=== PATIENT | female | born 1960 | race Caucasian/White ===

== ENCOUNTER → 2017-09-08 | Outpatient (CLI) | payer BC ==
[~2017-09-08] MED LIST: CA C1TAB66 PO; LSNP20T PO; LVT.025T PO; OMG1KC PO
== END ==
LOC: RAD 08:56
PROVIDERS: ATTEND Family Medicine
DX: Z12.31 Encounter for screening mammogram for malignant neoplasm of breast (principal); Z53.8 Procedure and treatment not carried out for other reasons

== ENCOUNTER → 2017-09-16 | Outpatient (CLI) | payer BC ==
--- NOTE | 2017-09-16 12:16 | Diagnostic Imaging Report ---
Indication: Routine screening. Comparison is made with prior exam from 04/14/2014 and 06/10/2012. 2-D and 3-D bilateral screening mammography was performed with CAD. Both breasts remain heterogeneously dense, limiting the sensitivity of mammography. No mass or malignant-appearing microcalcifications are seen. There are benign calcifications bilaterally. The axillae are unremarkable. Impression: BI-RADS category 2 No mammographic features suspicious for malignancy are identified. ACR BI-RADS Category 2: Benign findings. Result letter will be mailed to the patient. Note: At least 10% of breast cancer is not imaged by mammography. Dictated by: Dictated on workstation # [id number]
== END ==
LOC: RAD 07:20
PROVIDERS: ATTEND Family Medicine
DX: Z12.31 Encounter for screening mammogram for malignant neoplasm of breast (principal)
CPT/HCPCS: 77067

== ENCOUNTER → 2018-04-20 | Outpatient (CLI) | payer BC ==
[2018-04-20 14:25] LABS: BASOPHILS % (AUTO) 1 % (0-10); EOSINOPHILS # (AUTO) 0.1 10^3/uL (0.0-0.3); EOSINOPHILS % (AUTO) 2 % (0-10); HEMATOCRIT 42 % (35-52); LYMPHOCYTES # (AUTO) 1.8 X 10^3 (1.0-4.0); LYMPHOCYTES % (AUTO) 28 % (12-44); MEAN CORPUSCULAR HEMOGLOBIN 32 PG (25-34); MEAN CORPUSCULAR HGB CONC 36 G/DL (32-36); MEAN CORPUSCULAR VOLUME 91 FL (80-99); MEAN PLATELET VOLUME 9.5 FL (7.4-10.4); MONOCYTES # (AUTO) 0.5 X 10^3 (0.0-1.0); MONOCYTES % (AUTO) 8 % (0-12); NEUTROPHILS # (AUTO) 3.9 X 10^3 (1.8-7.8); NEUTROPHILS % (AUTO) 62 % (42-75); PLATELET COUNT 344 10^3/uL (130-400); RED CELL DISTRIBUTION WIDTH 11.4 % (10.0-14.5); WHITE BLOOD COUNT 6.4 10^3/uL (4.3-11.0)
[2018-04-20 14:48] LABS: ALANINE AMINOTRANSFERASE 13 U/L (0-55); ALBUMIN 4.9 GM/DL (3.2-4.5); ALKALINE PHOSPHATASE 63 U/L (40-136); BILIRUBIN,TOTAL 0.4 MG/DL (0.1-1.0); BUN/CREATININE RATIO 16; CALCIUM 10.3 MG/DL (8.5-10.1); CARBON DIOXIDE 26 MMOL/L (21-32); CHLORIDE 96 MMOL/L (98-107); GFR ESTIMATED > 60; GLUCOSE 142 MG/DL (70-105); POTASSIUM 3.3 MMOL/L (3.6-5.0); SODIUM 134 MMOL/L (135-145); TOTAL PROTEIN 8.2 GM/DL (6.4-8.2)
[2018-04-20 15:10] LABS: FREE T4 (FREE THYROXINE) 1.48 NG/DL (0.70-1.48)
== END ==
LOC: CARD 13:58
PROVIDERS: ATTEND Nurse Practitioner Family
DX: R06.00 Dyspnea, unspecified (principal); R00.2 Palpitations; R07.9 Chest pain, unspecified
CPT/HCPCS: 36415; 80053; 84439; 84443; 84484; 85025; 85379; 93005

== ENCOUNTER → 2018-07-27 | Outpatient (CLI) | payer BC ==
--- NOTE | 2018-07-27 08:48 | Diagnostic Imaging Report ---
PROCEDURE: US Gallbladder. TECHNIQUE: Multiple real-time grayscale images were obtained over the right upper quadrant in various projections. INDICATION: Right upper quadrant pain. There are no prior studies available for comparison. FINDINGS: There is no evidence for cholelithiasis or acute cholecystitis. The common bile duct is 7.3 mm and perhaps slightly dilated (normal duct size 5-6 mm). There is no sign of choledocholithiasis. The liver does not appear to be enlarged and there is no focal mass involving the liver. The biliary tree is not abnormally distended. The right kidney is unremarkable. The pancreas and the aorta were not well imaged. IMPRESSION: 1. There is no evidence for cholelithiasis or acute cholecystitis but the common bile duct is slightly dilated. There is no sign of choledocholithiasis, however. If further evaluation of the common bile duct is desired, then MRCP would be recommended. 2. There is no acute abnormality of the right upper quadrant otherwise. Dictated by: Dictated on workstation # [id number]
== END ==
LOC: RAD 07:40
PROVIDERS: ATTEND Surgery
DX: K83.8 Other specified diseases of biliary tract (principal); R10.11 Right upper quadrant pain; R11.0 Nausea; R19.7 Diarrhea, unspecified
CPT/HCPCS: 76705

== ENCOUNTER 2018-08-13 05:39 | Outpatient (CLI) | payer BC ==
[~2018-08-13] VITALS: Ht 147.3 cm; Wt 52.2 kg
[2018-08-13] MEDS ORDERED: PANT40TA3 PO (13:13)
[2018-08-13] MEDS ORDERED: METO-370 PO (13:13)
[2018-08-13] MEDS ORDERED: LEVO88TA54 PO (13:13)
[2018-08-13] MEDS ORDERED: MULT-178 PO (13:13)
[2018-08-13] MEDS ORDERED: POTA-51 PO (13:13)
== END 2018-08-13 13:18 | disposition home or self-care (01) ==
LOC: PREOP 05:39
PROVIDERS: ATTEND Surgery
DX: Z01.818 Encounter for other preprocedural examination (principal)

== ENCOUNTER 2018-08-19 09:36 | Day surgery (SDC) | payer BC ==
[~2018-08-19] VITALS: Ht 147.3 cm; Wt 52.2 kg
[~2018-08-19 09:36] MED LIST changes: +LEVO88TA54 PO; +METO-370 PO; +MULT-178 PO; +PANT40TA3 PO; +POTA-51 PO
--- OUTSIDE RECORDS SUMMARY | 2018-08-19 09:47 | XMS REPORT | Encounter Summary ---
Author Author [facility] Organization [facility] Address Unknown Phone Unavailable Care Team Providers Care Claims Administrator Name Role Phone Yesenia Vazquez MD PCP Reason for Referral * Test (Routine) Referred By Contact Referred To Contact Status Reason Specialty Diagnoses / [place] [address] [place] [address] [employer]/[place] [address] [place] [address] No Auth Needed Cardiology Diagnoses Tachycardia Cardiac murmur Essential hypertension Dyspnea on exertion P rocedures TREADMILL EXERCISE ECHOCARDIOGRAM W/2-D + DOPPLER ECHO MA ECHO TTHRC R-T 2D W/WO M-MODE COMPLETE REST&ST * Test (Routine) Referred By Contact Referred To Contact Status Reason Specialty Diagnoses / [place] [address] [place] [address] [facility] [address] [place] [address] No Auth Needed Cardiology Diagnoses Tachycardia Cardiac murmur Essential hypertension Dyspnea on exertion P rocedures TREADMILL EXERCISE ECHOCARDIOGRAM W/2-D + DOPPLER ECHO MA ECHO TTHRC R-T 2D W/WO M-MODE COMPLETE REST&ST Reason for Visit * Test (Routine) Referred By Contact Referred To Contact Status Reason Specialty Diagnoses / [place] [address] [employer] [address] [place] [address] [employer] [facility]/[place] [address] [place] [address] No Auth Needed Cardiology Diagnoses Tachycardia Cardiac murmur Essential hypertension Dyspnea on exertion P rocedures TREADMILL EXERCISE ECHOCARDIOGRAM W/2-D + DOPPLER ECHO MA ECHO TTHRC R-T 2D W/WO M-MODE COMPLETE REST&ST Encounter Details Care Team Description [place] [address] [employer] [address] [place] [address] [phone] 06/11/2018 [facility] [address] [place] [address] Social History Date Tobacco Use Types Packs/Day Years Used Never Smoker Smokeless Tobacco: Never Used Drinks/Week oz/Week Comments Alcohol Use 12 Cans of beer 7.2 Yes Sex Assigned at Date Recorded Not on file Industry Job Start Date Occupation Not on file Not on file Not on file Travel End Travel History Travel Start No recent travel history available. documented as of this encounter Last Filed Vital Signs Reading Time Taken Comments Vital Sign 150/90 06/11/2018 2:29 PM CDT Blood Pressure - - Pulse - - Temperature - - Respiratory Rate - - Oxygen Saturation - - Inhaled Oxygen Concentration 55.8 kg (123 lb) 06/11/2018 2:29 PM CDT Weight 147.3 cm (4' 10") 06/11/2018 2:29 PM CDT Height 25.71 06/11/2018 2:29 PM CDT Body Mass Index documented in this encounter Medications at Time of Discharge Start Date End Date Medication Sig Dispensed Refills levothyroxine sodium Take 88 mcg 0 (LEVOTHYROXINE PO) by mouth daily. metoprolol XL (TOPROL XL) Take 50 mg by 0 50 mg extended release mouth daily. tablet potassium chloride SR Take 10 mEq 0 (K-DUR) 10 mEq tablet by mouth twice daily. Take with a meal and a full glass of water. documented as of this encounter Plan of Treatment Not on filedocumented as of this encounter Procedures Comments Procedure Name Priority Date/Time Associated Diagnosis TREADMILL EXERCISE Routine 06/11/2018 Tachycardia ECHOCARDIOGRAM W/2-D + 2:29 PM CDT Cardiac murmur DOPPLER ECHO Essential hypertension Dyspnea on exertion documented in this encounter Results * TREADMILL EXERCISE ECHOCARDIOGRAM W/2-D + DOPPLER ECHO (06/11/2018 2:29 PM CDT) Pathologist [facility] BSA 1.51 m2 OTHER OUTSIDE LAB Baseline HR 97 bpm OTHER OUTSIDE LAB Baseline BP - 150 mmHg OTHER OUTSIDE Sys LAB Percent HR 90 % OTHER OUTSIDE LAB Referring Yesenia Vazquez MD OTHER OUTSIDE Provider LAB CV ECHO PV Shaheen Dunn OTHER OUTSIDE DROP BOARD WORKER LAB Target HR 146 OTHER OUTSIDE LAB MV vena 0.58 cm OTHER OUTSIDE contracta LAB TV rest 28 mmHg OTHER OUTSIDE pulmonary LAB artery pressure Right Heart 0.204 m/s OTHER OUTSIDE Systolic TDI S' LAB Cardiology Siemens [id number] OTHER OUTSIDE Ultrasound LAB Machine Baseline BP - 90 mmHg OTHER OUTSIDE Garces LAB IVS 1.14 0.6 - 0.9 cm OTHER OUTSIDE LAB LVIDD 3.51 3.8 - 5.2 cm OTHER OUTSIDE LAB LVIDS 2.02 2.2 - 3.5 cm OTHER OUTSIDE LAB PW 0.77 0.6 - 0.9 cm OTHER OUTSIDE LAB TDI e' 0.10 m/s OTHER OUTSIDE LAB Right 2.64 1.9 - 3.5 cm OTHER OUTSIDE Ventricular Mid LAB Diameter LA size 2.97 2.7 - 3.8 cm OTHER OUTSIDE LAB LA volume 24.05 22 - 52 mL OTHER OUTSIDE LAB Right Atrial 11.02 <18 cm2 OTHER OUTSIDE Area LAB Right Atrial 4.13 2.2 - 2.8 cm OTHER OUTSIDE Major Dimension LAB and a peak 6.71 mmHg OTHER OUTSIDE gradient of LAB AV peak 1.30 m/s OTHER OUTSIDE velocity LAB MV Peak A Irving 0.94 m/s OTHER OUTSIDE LAB MV Peak E Irving 0.87 m/s OTHER OUTSIDE PW LAB Right 3.07 2.5 - 4.1 cm OTHER OUTSIDE Ventricular LAB Basal Diameter Right Heart 3.14 >1.7 cm OTHER OUTSIDE Systolic Mmode LAB TAPSE Sinus 2.54 2.4 - 3.6 cm OTHER OUTSIDE LAB Exercise 6 min OTHER OUTSIDE duration (min) LAB Estimated 7 METS OTHER OUTSIDE workload LAB Peak HR 160 bpm OTHER OUTSIDE LAB Peak BP - Sys 170 mmHg OTHER OUTSIDE LAB Percent of 99 % OTHER OUTSIDE predicted max LAB HR Post 1 minute 136 bpm OTHER OUTSIDE recovery HR LAB Exercise 30 sec OTHER OUTSIDE duration (sec) LAB FS 42.45 28 - 44 % OTHER OUTSIDE LAB EF 72.17 % OTHER OUTSIDE LAB LV mass 97.09 66 - 150 g OTHER OUTSIDE LAB RWT 0.44 <=0.42 OTHER OUTSIDE LAB E/A ratio 0.93 OTHER OUTSIDE LAB E/E' ratio 8.70 OTHER OUTSIDE LAB Left Atrium 15.93 16 - 34 OTHER OUTSIDE Index LAB Left Ventricle 64.30 44 - 88 g/m2 OTHER OUTSIDE Mass Index LAB Peak BP - Garces 78 OTHER OUTSIDE LAB ECHO EF 65 % OTHER OUTSIDE LAB Specimen Narrative Performed At OTHER OUTSIDE LAB Resting 2D/Doppler echocardiogram: Normal left ventricle size and systolic function, EF ~ 65%. Normal LV diastolic function Normal right ventricle size and qualitative function Normal atria sizes bilaterally Mild mitral regurgitation. Estimated peak systolic PA pressure=28 mmHg No pericardial effusion Treadmill stress ECG: Patient exercised for 6 min and 30 seconds on a Abdullahi protocol Patient achieved 99% max pred HR and 7 METS Exercise capacity is fair. Patient experienced no symptoms suggestive of angina Baseline ECG showed normal sinus rhythm with normal ST and T wave changes. Patient had upsloping less than [address] depression in leads V4-V6 and II 3 and aVF. No significant arrhythmia noted during rest, exercise or recovery periods Overall non-ischemic stress ECG Alba Treadmill score is 7, which is low risk in terms of annual cardiovascular mortality Treadmill stress 2D echocardiogram: Overall ejection fraction more than 65% with stress There were no regional wall motion abnormalities during stress or recovery period Overall non-ischemic stress echocardiogram Performing Organization Address City/State/Zipcode Phone Number OTHER OUTSIDE LAB documented in this encounter Visit Diagnoses Diagnosis Tachycardia Tachycardia, unspecified Cardiac murmur Undiagnosed cardiac murmurs Essential hypertension Unspecified essential hypertension Dyspnea on exertion Other dyspnea and respiratory abnormality documented in this encounter
--- OUTSIDE RECORDS SUMMARY | 2018-08-19 09:47 | XMS REPORT | Encounter Summary ---
Author Author [facility] Organization [facility] Address Unknown Phone Unavailable Care Team Providers Care Brim Curler Name Role Phone Yesenia Vazquez MD PCP Reason for Visit * Reason Comments Records Request Requested Thyroid level from PCP Lab Results Encounter Details Care Team Description Date Type Department Danika Fraser RN Records Request (Requested Thyroid level from PCP); Lab Results 06/12/2018 Documentation [facility] [address] [place] [address] Social History Date Tobacco Use Types Packs/Day [...] history available. documented as of this encounter Progress Notes * Danika Fraser RN - 06/12/2018 5:41 PM CDT Normal TSH/Free T4 results received and entered to records. LN * Danika Fraser RN - 06/12/2018 5:41 PM CDT URGENT REQUEST FOR MEDICAL RECORDS FOR CONTINUITY OF CARE PLEASE FAX: RECENT THYROID TEST RESULTS PLEASE FAX TO [phone] ATTENTION: DANIKA FRASER RN THANK YOU documented in this encounter Plan of Treatment Not on filedocumented as of this encounter Procedures Comments Procedure Name Priority Date/Time Associated Diagnosis THYROID STIMULATING Routine 04/20/2018 HORMONE-TSH FREE T4 (FREE THYROXINE) Routine 04/20/2018 ONLY documented in this encounter Results * THYROID STIMULATING HORMONE-TSH (04/20/2018) TSH 1.38 OTHER OUTSIDE LAB Specimen Blood - Blood Narrative Performed At Performing Organization Address City/State/Zipcode Phone Number OTHER OUTSIDE LAB * FREE T4 (FREE THYROXINE) ONLY (04/20/2018) T4-Free 1.48 OTHER OUTSIDE LAB Specimen Blood - Blood Narrative Performed At Performing Organization Address City/State/Zipcode Phone Number OTHER OUTSIDE LAB documented in this encounter Visit Diagnoses Not on filedocumented in this encounter
--- OUTSIDE RECORDS SUMMARY | 2018-08-19 09:47 | XMS REPORT | Encounter Summary ---
Author Author [facility] Organization [facility] Address Unknown Phone Unavailable Care Team Providers Care Supervisor Powdered Sugar Name Role Phone Yesenia Vazquez MD PCP Reason for Visit * Reason Comments Test EXED Encounter Details Care Team Description Date Type Department Rowan Barron RN Test (EXED) 06/10/2018 Referral [facility] Pre-Procedure Health System Assessment [id number] [place] [address] Social History Date Tobacco Use Types Packs/Day [...] as of this encounter Progress Notes * Rowan Barron, RN - 06/10/2018 11:11 AM CDT [facility] Cardiology/[facility] Pre-Test Assessment for EXED Patient Name: Laura Powell MR#: [id number] : 1960 Age: 57 y.o. Gender: Female Requesting Physician (/): DEREK Referring Physician (/): Study# Date of Study: _4___/__25__/__19___ Date of Last Study: ____/____/ (ADAC / DSPECT) Date of Last Office/Hosp Visit: __4__/_11___/_19____ If >24 hours complete the Assessment below: > 24 Hour Assessment: Risk Factors (Y or N): Diabetes Mellitus N Hypertension Y Cholesterol N Smoker N Packs per Day Years Quit Since last MAC physician examination has the patient experienced: Hospitalization: [x]No []Yes (explain) Emergency room visit: [x]No []Yes (explain) Change in CV symptoms: Chest Pain []No [x]Yes Scale []1 []2 [x]3 or [x]4 []5 []6 []7 []8 []9 []10 Burning, but I am still able to do my normal daily activities Shortness of Breath []No [x]Yes Palpitations [x]No []Yes Pre-syncope [x]No []Yes Syncope [x]No []Yes Transient ischemic attack / Cardiovascular Accident [x]No []Yes Hypertension [x]No []Yes Other Indications/History: VIDAL Change in medication: None Allergies: Iodine Additional procedural comments: Called pt, went over EXED instructions with her via phone call. >1 year since last OV or New Patient (High Risk Screen): Nutritional Risk: [x]None Identified []Unintentional Weight Loss>10 lbs []Unintentional Weight Gain>10 lbs []Non-Healing Wound Fall Risk: [x]None Identified []Hx of falls within last 6 mo. []Impaired Balance/Mobility []Use of Assistive Device Safety Screen: [x]None Identified []Patient does not feel safe at home []Patient feels like harming self or others greenskeeper head Signature: _H Anderson RN__ Date: /__19__ Time: __ _ : _14__ Date of Dictation: ____/____/____ Reporting Physician Signature [facility] Pre-Test Assessment - Version: 2014-03-21 documented in this encounter Plan of Treatment Not on filedocumented as of this encounter Visit Diagnoses Not on filedocumented in this encounter
--- OUTSIDE RECORDS SUMMARY | 2018-08-19 09:47 | XMS REPORT | Clinical Summary ---
Author Author [facility] Organization [facility] Address Unknown Phone Unavailable Care Team Providers Care Neonatal Intensive Care Nurse Name Role Phone Yesenia Vazquez MD PCP Source Comments Some departments are not documenting in the electronic medical record. If you d o not see the information that you expected, contact Release of Information in [facility] [employer] Information Management department at [phone] for further assistan ce in locating additional records.[facility] Allergies Comments Active Allergy Reactions Severity Noted Date Iodine RASH Medium 05/28/2018 Medications End Date Status Medication Sig Dispensed Refills Start Date Active levothyroxine sodium Take 88 mcg 0 (LEVOTHYROXINE PO) by mouth daily. Active potassium chloride SR Take 10 mEq 0 (K-DUR) 10 mEq tablet by mouth twice daily. Take with a meal and a full glass of water. Active metoprolol XL (TOPROL XL) Take 50 mg by 0 50 mg extended release mouth daily. tablet Active Problems Problem Noted Date Dyspnea 06/12/2018 Overview: 06/11/18-Exercise Echo: EF ~ 65%. Mild mitral regurgitation. Estimated peak systolic PA pressure=28 mmHg. Patient exercised for 6 min and 30 seconds. Patient achieved 99% max pred HR and 7 METS. Exercise capacity is fair. Patient experienced no symptoms suggestive of angina. Patient had upsloping less than [address] depression in leads V4-V6 and II 3 and aVF. No significant arrhythmia noted during rest, exercise or recovery periods. Overall non-ischemic stress ECG. No regional wall motion abnormalities during stress or recovery period. Overall non-ischemic stress echocardiogram H/O tubal ligation 05/26/2018 Overview: 2007 Hypothyroidism 05/26/2018 Essential hypertension 05/26/2018 Encounters Care Team Description Date Type Specialty Danika Fraser, RN Records Request (Requested Thyroid level from PCP); Lab Results 06/12/2018 Documentation Cardiology Danika Fraser RN Results (Treadmill Echo); Blood Pressure Readings 06/12/2018 Telephone Cardiology Eros Weber MD 06/11/2018 Hospital Cardiology Encounter Rowan Barron RN Test (EXED) 06/10/2018 Referral Cardiology Pre-Procedure Assessment Eros Weber MD 05/28/2018 Hospital Cardiology Encounter Eros Weber MD New Patient (Murmur; Tachycardia) 05/28/2018 Office Visit Cardiology Danika Fraser RN Records Request (requested records from PCP) 05/25/2018 Documentation Cardiology Danika Fraser RN New Patient (Evaluation of Murmur and Tachycardia. Sister of Joellen Broussard. Pt's also sees Dr Weber. for patient to call to discuss profile.) 05/22/2018 Patient Profile Cardiology from Last 3 Months Family History Medical History Relation Name Comments Sudden Cardiac Father Cancer Maternal Grandfather High Cholesterol Mother Cancer Paternal Grandfather Emphysema Paternal Grandfather Thyroid Disease Sister Relation Name Status Comments Father (Age 47) Maternal Grandfather Maternal Grandmother (Age 92) Mother Alive Paternal Grandfather Paternal Grandmother (Age 99) Sister Alive Social History Date Tobacco Use Types Packs/Day Years Used Never Smoker Smokeless Tobacco: Never Used Drinks/Week oz/Week Comments Alcohol Use 12 Cans of beer 7.2 Yes Sex Assigned at Date Recorded Not on file Industry Job Start Date Occupation Not on file Not on file Not on file Travel End Travel History Travel Start No recent travel history available. Last Filed Vital Signs Reading Time Taken Comments Vital Sign 150/90 06/11/2018 2:29 PM CDT Blood Pressure 75 05/28/2018 2:01 PM CDT Pulse - - Temperature - - Respiratory Rate - - Oxygen Saturation - - Inhaled Oxygen Concentration 55.8 kg (123 lb) 06/11/2018 2:29 PM CDT Weight 147.3 cm (4' 10") 06/11/2018 2:29 PM CDT Height 25.71 06/11/2018 2:29 PM CDT Body Mass Index Plan of Treatment Health Maintenance Due Date Last Done Comments HEPATITIS C SCREENING 1960 PHYSICAL (COMPREHENSIVE) 11/18/1966 EXAM HIV SCREENING 11/18/1974 DTAP/TDAP VACCINES (1 - 11/18/1977 Tdap) CERVICAL CANCER SCREENING 11/18/1989 BREAST CANCER SCREENING 1999 COLORECTAL CANCER 11/18/2009 SCREENING SHINGLES RECOMBINANT 11/18/2009 VACCINE (1 of 2) INFLUENZA VACCINE 11/17/2018 Procedures Comments Procedure Name Priority Date/Time Associated Diagnosis TREADMILL EXERCISE Routine 06/11/2018 Tachycardia ECHOCARDIOGRAM W/2-D + 2:29 PM CDT Cardiac murmur DOPPLER ECHO Essential hypertension Dyspnea on exertion BASIC METABOLIC PANEL Routine 05/28/2018 Tachycardia 2:58 PM CDT Cardiac murmur Essential hypertension Dyspnea on exertion ECG-SCAN 05/28/2018 12:00 AM CDT from Last 3 Months Results * TREADMILL EXERCISE ECHOCARDIOGRAM W/2-D + DOPPLER ECHO (06/11/2018 2:29 PM CDT) BSA 1.51 m2 OTHER OUTSIDE LAB Baseline HR 97 bpm OTHER OUTSIDE LAB Baseline BP - 150 mmHg OTHER OUTSIDE Sys LAB Percent HR 90 % OTHER OUTSIDE LAB Referring Yesenia Vazquez MD OTHER OUTSIDE Provider LAB CV ECHO PV Shaheen Dunn OTHER OUTSIDE ELECTRONIC ASSEMBLY LAB Target HR 146 OTHER OUTSIDE LAB MV vena 0.58 cm OTHER OUTSIDE contracta LAB TV rest 28 mmHg OTHER OUTSIDE pulmonary LAB artery pressure Right Heart 0.204 m/s OTHER OUTSIDE Systolic TDI S' LAB Cardiology Siemens [id number] OTHER OUTSIDE Ultrasound LAB Machine Baseline BP [...] City/State/Zipcode Phone Number OTHER OUTSIDE LAB * BASIC METABOLIC PANEL (05/28/2018 2:58 PM CDT) [facility] Sodium 132 (L) 137 - 147 MMOL/L [facility] Potassium 4.2 3.5 - 5.1 MMOL/L [facility] Chloride 99 98 - 110 MMOL/L [facility] CO2 25 21 - 30 MMOL/L [facility] Anion Gap 8 3 - 12 [facility] Glucose 110 (H) 70 - 100 MG/DL [facility] Blood Urea 11 7 - 25 MG/DL [facility] Nitrogen Creatinine 0.75 0.4 - 1.00 MG/DL [facility] Calcium 9.8 8.5 - 10.6 MG/DL [facility] eGFR Non >60 >60 mL/min [facility] Comment: [place] The eGFR is not validated for use in drug dosing adjustments.Continue to use estimated creatinine clearance per dosing reference text.Please contact the Clinical Pharmacist for questions. eGFR >60 >60 mL/min [facility] [place] Comment: The eGFR is not validated for use in drug dosing adjustments.Continue to use estimated creatinine clearance per dosing reference text.Please contact the Clinical Pharmacist for questions. Specimen Blood Performing Organization Address City/State/Zipcode Phone Number MAIN LAB [address] [place] [address] * ECG-SCAN (05/28/2018 12:00 AM CDT) Narrative Performed At Ordered by an unspecified provider. from Last 3 Months Insurance Type Payer Benefit Subscriber ID Effective Phone Address Plan / Dates Group PPO [facility] xxxxxxxxxxxx [id number] [facility] resent BLUE Advance Directives Patient Director Of Hotel Explanation Type Date Recorded Advance Directive/DPOA
--- OUTSIDE RECORDS SUMMARY | 2018-08-19 09:47 | XMS REPORT | Encounter Summary ---
Author Author [facility] Organization [facility] Address Unknown Phone Unavailable Care Team Providers Care Child Psychologist Name Role Phone Yesenia Vazquez MD PCP Encounter Details Care Team Description [place] [address] [address] [place] [address] [phone] 05/28/2018 Hospital [facility] [id number] [place] [address] Social History Date Tobacco Use Types Packs/Day [...] history available. documented as of this encounter Medications at Time of Discharge [...] Comments Procedure Name Priority Date/Time Associated Diagnosis BASIC METABOLIC PANEL Routine 05/28/2018 Tachycardia 2:58 PM CDT Cardiac murmur Essential hypertension Dyspnea on exertion ECG-SCAN 05/28/2018 12:00 AM CDT documented in this encounter Results * BASIC METABOLIC PANEL (05/28/2018 2:58 PM CDT) Sodium 132 (L) 137 - 147 MMOL/L [...] >60 >60 mL/min [facility] Comment: [place] The eGFR is not validated for use in drug dosing adjustments.Continue to use estimated creatinine clearance per dosing reference text.Please contact the Clinical Pharmacist for questions. eGFR >60 >60 mL/min [facility] [place] Comment: The eGFR is not validated for use in drug dosing adjustments.Continue to use estimated creatinine clearance per dosing reference text.Please contact the Clinical Pharmacist for questions. Specimen Blood Performing Organization Address City/State/Zipcode Phone Number MAIN LAB [address] [place] [address] * ECG-SCAN (05/28/2018 12:00 AM CDT) Narrative Performed At Ordered by an unspecified provider. documented in this encounter Visit Diagnoses Diagnosis Tachycardia Tachycardia, unspecified Cardiac murmur Undiagnosed cardiac murmurs Essential hypertension Unspecified essential hypertension Dyspnea on exertion Other dyspnea and respiratory abnormality documented in this encounter
--- OUTSIDE RECORDS SUMMARY | 2018-08-19 09:47 | XMS REPORT | Encounter Summary ---
Author Author [facility] Organization [facility] Address Unknown Phone Unavailable Care Team Providers Care Bargain Table Clerk Name Role Phone Yesenia Vazquez MD PCP Reason for Visit * Reason Comments Results Treadmill Echo Blood Pressure Readings Encounter Details Care Team Description Date Type Department Danika Fraser RN Results (Treadmill Echo); Blood Pressure Readings 06/12/2018 Telephone [facility] [address] [place] [address] Social History Date Tobacco Use Types Packs/Day [...] history available. documented as of this encounter Miscellaneous Notes * Telephone Encounter - Danika Fraser RN - 07/03/2018 2:35 PM CDT Ms. Powell called back and LM that she has been feeling good. BP/HR good. LM with readings: 136/81 122/74 121/75 130/71 HR 60-65. Attempted to reach her back to discuss. LM asking her to call if SBP consistentl y >130. My direct number left. LN * Telephone Encounter - Danika Fraser RN - 07/03/2018 11:49 AM CDT LM for Mrs Powell that I was calling to check on BP/HR readings. My direct numb er left. LN * Telephone Encounter - Danika Fraser RN - 06/26/2018 12:32 PM CDT I called to discuss BP readings with Ms. Powell. Last couple days BP: 126/75-78, HR 58-62; however, previously she reports SBP was 140's. She will continue to monitor and call with BP readings later next week along wit h the name of a new medication she started for a "stomach ulcer." Thinks it is Protonix but "not sure." She stated she is feeling "much better." LN * Telephone Encounter - Danika Fraser RN - 06/12/2018 5:37 PM CDT Able to discuss information with Ms. Powell. She states she has not been checki ng her BP. Stated she checked her BP once and it was 130/80. HR has been "better". At rest, 62-82. "little higher" when up doing activity. She is battling allergies right now. Reminded her to not take any allergy medica tion with a decongestant. Also, she reports she did have Thyroid testing done with her PCP. Will request r ecords. Asked her to start checking her BP/HR daily and that I would get back with her i n 10-14 days to discuss results. Asked her to get with her PCP for further f/u. LN * Telephone Encounter - Danika Fraser RN - 06/12/2018 8:19 AM CDT Female, 57 y.o., 1960 Message Received: Today Message Contents Eros Weber MD Nelson, Laurie, RN Cristine Please let Mrs. Powell know her treadmill echocardiogram is normal. Baseline echocardiogram entirely normal. Good exercise capacity, no chest pain, heart rate looks fine with exercise. Her blood pressure was notably elevated at arrival. Please inquire about home heart rate and blood pressure over the past 2 weeks, if blood pressure consisten tly greater than 130, I would like to increase her metoprolol to 75 mg daily At this point I do not feel that we have a cardiac examination for her persisten t dyspnea. Please assure that she has had a TSH drawn, I do not recall this was in her outp atient lab draw with her PCP, if not done please order. Given this entirely normal treadmill stress test, I would suggest that she retur n to her PCP for pulmonary testing given her sig sx Thanks Manny Result Notes for TREADMILL EXERCISE ECHOCARDIOGRAM W/2-D + DOPPLER ECHO documented in this encounter Plan of Treatment Not on filedocumented as of this encounter Visit Diagnoses Diagnosis Other form of dyspnea documented in this encounter
--- OUTSIDE RECORDS SUMMARY | 2018-08-19 09:48 | XMS REPORT | Continuity of Care Document ---
Author Organization Unknown Address Unknown Allergies There is no data. Medications There is no data. Problems There is no data. Procedures There is no data. Results There is no data. Encounters ACCT No. Visit Date/Time Discharge Status Pt. Type Provider Facility Loc./Unit Complaint 05/201707/22/2018 00:15:06 07/22/2018 23:59:59 CLS Outpatient Yesenia Vazquez
--- OUTSIDE RECORDS SUMMARY | 2018-08-19 09:48 | XMS REPORT | Encounter Summary ---
Author Author [facility] Organization [facility] Address Unknown Phone Unavailable Care Team Providers Care Law Firm Administrator Name Role Phone Yesenia Vazquez MD PCP Reason for Visit * Reason Comments New Patient Evaluation of Murmur and Tachycardia. Sister of Joellen Broussard. Pt's also sees Dr Weber. LM for patient to call to discuss profile. Encounter Details Care Team Description Date Type Department Danika Fraser RN New Patient (Evaluation of Murmur and Tachycardia. Sister of Joellen Broussard. Pt's also sees Dr Weber. LM for patient to call to discuss profile.) 05/22/2018 Patient Profile [facility] [address] [place] [address] Social History Date Tobacco Use Types Packs/Day [...] as of this encounter Progress Notes * Shine Bowling RN - 05/22/2018 9:19 AM CDT Patient left voicemail yesterday at 7:17 PM returning Danika's call. Left voicemail for patient to call back to discuss medical history. * Danika Fraser, MEREDITH - 05/22/2018 9:19 AM CDT Evaluation of Murmur and Tachycardia. Sister of Joellen Broussard. Pt's also s ees Dr Weber. LM for patient to call to discuss profile. LN documented in this encounter Plan of Treatment Not on filedocumented as of this encounter Visit Diagnoses Diagnosis H/O tubal ligation Tubal ligation status Hypothyroidism, unspecified type Essential hypertension Unspecified essential hypertension documented in this encounter
--- OUTSIDE RECORDS SUMMARY | 2018-08-19 09:48 | XMS REPORT | Encounter Summary ---
Author Author [facility] Organization [facility] Address Unknown Phone Unavailable Care Team Providers Care Block Trader Name Role Phone Yesenia Vazquez MD PCP Reason for Referral * Consult, Test & Treat (Routine) Referred By Contact Referred To Contact Status Reason Specialty Diagnoses / [place] [address] [place] [address] New Request Procedures REQUEST FOR CARDIOLOGY APPOINTMENT * Test (Routine) Referred By Contact Referred To Contact Status Reason Specialty Diagnoses / [place] [address] [place] [address] [facility] [address] [place] [address] No Auth Needed Cardiology Diagnoses Tachycardia Cardiac murmur Essential hypertension Dyspnea on exertion P rocedures TREADMILL EXERCISE ECHOCARDIOGRAM W/2-D + DOPPLER ECHO TX ECHO TTHRC R-T 2D W/WO M-MODE COMPLETE REST&ST Reason for Visit * Reason Comments New Patient Murmur; Tachycardia * Consult, Test & Treat (Routine) Referred By Contact Referred To Contact Status Reason Specialty Diagnoses / Procedures Yesenia Vazquez MD [address] [id number] [place] [address] [place] [address] New Request Specialty Services Cardiology Diagnoses Required Tachycardia Cardiac murmur Encounter Details Care Team Description Date [place] [address] [place] [address] [phone] New Patient (Murmur; Tachycardia) 05/28/2018 Office Visit [facility] [address] [facility] [address] [place] [address] Social History Date Tobacco Use Types Packs/Day [...] Signs Reading Time Taken Comments Vital Sign 126/68 05/28/2018 2:01 PM CDT Blood Pressure 75 05/28/2018 2:01 PM CDT Pulse - - Temperature - - Respiratory Rate - - Oxygen Saturation - - Inhaled Oxygen Concentration 56.2 kg (123 lb 12.8 oz) 05/28/2018 2:01 PM CDT Weight 147.3 cm (4' 10") 05/28/2018 2:01 PM CDT Height 25.87 05/28/2018 2:01 PM CDT Body Mass Index documented in this encounter Patient Instructions * Patient Instructions* Eros Weber MD - 05/28/2018 2:00 PM CDT I am concerned about your recent symptoms of shortness of breath with minimal ac tivity. Your recent lab testing on my review looks okay outside of low sodium level. I am repeating your sodium lab work today. I am scheduling you for a treadmill echo julioadilene Salgadoam stress test to further as sess her symptoms. Your exam and EKG today are normal I'll plan for a follow up clinic visit in 4 months, or sooner if you're having q uestions or problems. Danika Fraser is my nurse. Should you have any questions or concerns prior to o ur next office visit please contact Danika [phone]. documented in this encounter Progress Notes * Eros Weber MD - 05/28/2018 2:00 PM CDT Date of Service: 05/28/2018 Laura Powell is a 57 y.o. female. HPI I had the opportunity to see Laura Powell for the first time in my office to day. Mrs. Powell is a delightful 57-year-old individual, the of one of my long-time patients, Burt Powell. Her sister, Joellen Goodson, is a nurse at our Heart Failure Team. Joellen Anthony helped coordinate this visit today. Dr. Juan barnes, thank you very much for sending this patient in consultation for evaluatio n of progressive dyspnea with exertion. Mrs. Powell indicates she was doing well up until late February. She had a GI i llness at that time with associated nausea, vomiting, and diarrhea. She had sig nificant symptoms over the course of 4 days. She missed work over the course of a week. She indicates she has not fully recovered, now 2 months out from this illness. Minimal activity is causing her significant dyspnea. She indicates 3 to 4 months ago, she had no problem walking 3 to 4 miles. She had no exercise l imitations whatsoever. For the past 8 weeks, a flight of stairs caused her to b e completely 'breathless'. She has tried to ride a bicycle outside this weekend . She was unable to do so, due to significant fatigue. The patient had an ECG with Dr. Vazquez on April 20. I have reviewed the mau ng. She had sinus tachycardia with a heart rate 107 at rest. She was subsequen tly transitioned from hydrochlorothiazide to metoprolol. She was started on 50 mg daily. She has been on this dose for about 2 weeks and tolerating it well. Unfortunately, she has had no improvement in her symptoms, despite the addition of metoprolol. Mrs. Powell indicates she has had no concerning chest pain. Her risk factors f or CAD include a family history in her father. He at age 47 of an NV. She has borderline hyperlipidemia, historically diet-controlled. She is a nonsmoker and has hypertension as detailed above. ([id number]) Vitals: 05/28/18 1401 BP: 126/68 Pulse: 75 Weight: 56.2 kg (123 lb 12.8 oz) Height: 1.473 m (4' 10") Body mass index is 25.87 kg/m. Past Medical History Patient Active Problem List Diagnosis Date Noted H/O tubal ligation 05/26/2018 2007 Hypothyroidism 05/26/2018 Essential hypertension 05/26/2018 Review of Systems Constitution: Positive for decreased appetite and night sweats. HENT: Positive for tinnitus. Cardiovascular: Positive for chest pain, claudication, dyspnea on exertion, irre gular heartbeat and palpitations. Respiratory: Positive for shortness of breath. Musculoskeletal: Positive for muscle cramps. Gastrointestinal: Positive for nausea. Genitourinary: Positive for decreased libido. Neurological: Positive for difficulty with concentration and excessive daytime s leepiness. Psychiatric/Behavioral: The patient has insomnia. Allergic/Immunologic: Positive for environmental allergies. Physical Exam General Appearance: resting comfortably, no acute distress Skin: warm, moist, no ulcers or xanthomas Digits and Nails: no clubbing Eyes: conjunctivae and lids normal, pupils are equal and round Lips & Oral Mucosa: no pallor or cyanosis Ear, Nose, Throat: No deformities, posterior oral pharynx clear Neck Veins: neck veins are flat, neck veins are not distended Chest Inspection: chest is normal in appearance Respiratory Effort: breathing is unlabored, no respiratory distress Auscultation/Percussion: lungs clear to auscultation, no rales, rhonchi, or whee zing PMI: PMI not enlarged or displaced Cardiac Rhythm: regular rhythm and normal rate Cardiac Auscultation: Normal S1 & S2, no S3 or S4, no rub Murmurs: no cardiac murmurs Carotid Arteries: normal carotid upstroke bilaterally, no bruits Pedal Pulses: normal symmetric pedal pulses Lower Extremity Edema: no lower extremity edema Abdominal Exam: soft, non-tender, no masses, bowel sounds normal Abdominal Aorta: nonpalpable abdominal aorta; no abdominal bruits Liver & Spleen: no organomegaly Gait & Station: normal balance and gait Muscle Strength: normal strength and tone Neurologic Exam: neurological assessment grossly intact Orientation: oriented to time, place and person Affect & Mood: appropriate and sustained affect Other: moves all extremities Cardiovascular Studies ECGsinus rhythm, 75, possible with atrial enlargement. Problems Addressed Today Encounter Diagnoses Name Primary? Tachycardia Cardiac murmur Assessment and Plan 1. Dyspnea with exertion-Mrs. Powell describes concerning dyspnea over the past 2 months. This correlates with a GI illness in late February. Historically, she could walk 3 to 4 miles without difficulty, over the past 2 months she has had challenge even climbing a single flight of stairs. Although she has not had ch est pain, I am concerned that she has underlying CAD with these concerning sympt oms. I have recommended that Mrs. Powell undergo a treadmill echocardiogram st ress test, we will schedule this next week at our [place] office. 2. Hypertension-the patient's blood pressure is reasonable, 126/68. She will co ntinue with metoprolol 50 mg daily. She had previously been on hydrochlorothiaz helen it was appropriately stopped with concerns for tachycardia and hyponatremia. 3. Hyponatremia-I have asked Mrs. Powell to have a basic metabolic profile draw n today. She has been off hydrochlorothiazide for over 2 weeks, hopeful we will see improvement in her sodium of 126 on lab testing 2 weeks ago. 4. Questionable murmur-my exam today is normal. Mrs. Powell is felt to have a murmur on exam with her PCP a few weeks ago. We are getting an echocardiogram f or further evaluation as detailed above. I have asked Mrs. Powell to follow up with me in about 4 months. ([id number]) Current Medications (including today's revisions) levothyroxine sodium (LEVOTHYROXINE PO) Take 88 mcg by mouth daily. metoprolol XL (TOPROL XL) 50 mg extended release tablet Take 50 mg by mouth daily. potassium chloride SR (K-DUR) 10 mEq tablet Take 10 mEq by mouth twice daily . Take with a meal and a full glass of water. documented in this encounter Plan of Treatment Order Schedule Name Type Priority Associated Diagnoses Ordered: 05/28/2018 ECG 12-LEAD ECG Routine Tachycardia Cardiac murmur documented as of this encounter Results * TREADMILL EXERCISE ECHOCARDIOGRAM W/2-D + DOPPLER ECHO (06/11/2018 2:29 PM CDT) [facility] Signature BSA 1.51 m2 OTHER OUTSIDE LAB Baseline HR 97 bpm OTHER OUTSIDE LAB Baseline BP - 150 mmHg OTHER OUTSIDE Sys LAB Percent HR 90 % OTHER OUTSIDE LAB Referring Yesenia Vazquez MD OTHER OUTSIDE Provider LAB CV ECHO PV Shaheen Dunn OTHER OUTSIDE DIRECTOR PHARMACEUTICAL LAB Target HR 146 OTHER OUTSIDE LAB MV vena 0.58 cm OTHER OUTSIDE contracta LAB TV rest 28 mmHg OTHER OUTSIDE pulmonary LAB artery pressure Right Heart 0.204 m/s OTHER OUTSIDE Systolic TDI S' LAB Cardiology Siemens [id number] OTHER OUTSIDE Ultrasound LAB Machine Baseline BP [...] >60 >60 mL/min [facility] Comment: [place] The eGFR is not validated for use in drug dosing adjustments.Continue to use estimated creatinine clearance per dosing reference text.Please contact the Clinical Pharmacist for questions. eGFR >60 >60 mL/min [facility] [place] Comment: The eGFR is not validated for use in drug dosing adjustments.Continue to use estimated creatinine clearance per dosing reference text.Please contact the Clinical Pharmacist for questions. Specimen Blood Performing Organization Address City/State/Zipcode Phone Number MAIN LAB [address] [place] [address] documented in this encounter Visit Diagnoses Diagnosis Dyspnea on exertion - Primary Other dyspnea and respiratory abnormality Tachycardia Tachycardia, unspecified Cardiac murmur Undiagnosed cardiac murmurs Essential hypertension Unspecified essential hypertension documented in this encounter
--- OUTSIDE RECORDS SUMMARY | 2018-08-19 09:48 | XMS REPORT | Encounter Summary ---
Author Author [facility] Organization [facility] Address Unknown Phone Unavailable Care Team Providers Care Repairer Name Role Phone Yesenia Vazquez MD PCP Reason for Referral * Consult, Test & Treat (Routine) Referred By Contact Referred To Contact Status Reason Specialty Diagnoses / Procedures Yesenia Vazquez MD [address] [place] [address] [place] [address] [place] [address] New Request Specialty Services Cardiology Diagnoses Required Tachycardia Cardiac murmur Encounter Details Care Team Description Date Type Department Maliha Garza Tachycardia (Primary Dx); Cardiac murmur 05/14/2018 Orders Only CVM REFERRAL Social History Date Tobacco Use Types Packs/Day Years Used Never Assessed Sex Assigned at Date Recorded Not on file Industry Job Start Date Occupation Not on file Not on file Not on file Travel End Travel History Travel Start No recent travel history available. documented as of this encounter Plan of Treatment Order Schedule Name Type Priority Associated Diagnoses Ordered: 05/14/2018 AMB REFERRAL TO ADULT Outpatient Routine Tachycardia CARDIOLOGY Referral Cardiac murmur documented as of this encounter Visit Diagnoses Diagnosis Tachycardia - Primary Tachycardia, unspecified Cardiac murmur Undiagnosed cardiac murmurs documented in this encounter
--- OUTSIDE RECORDS SUMMARY | 2018-08-19 09:48 | XMS REPORT | Encounter Summary ---
Author Author [facility] Organization [facility] Address Unknown Phone Unavailable Care Team Providers Care Training Officer Name Role Phone Yesenia Vazquez MD PCP Reason for Visit * Reason Comments Records Request requested records from PCP Encounter Details Care Team Description Date Type Department Danika Fraser RN Records Request (requested records from PCP) 05/25/2018 Documentation [facility] [address] [place] [address] Social History Date Tobacco Use Types Packs/Day Years Used Never Assessed Sex Assigned at Date Recorded Not on file Industry Job Start Date Occupation Not on file Not on file Not on file Travel End Travel History Travel Start No recent travel history available. documented as of this encounter Progress Notes * Danika Fraser RN - 05/25/2018 6:57 PM CDT Records received. Lab entered. LN * Danika Fraser RN - 05/25/2018 6:57 PM CDT URGENT REQUEST FOR MEDICAL RECORDS FOR CONTINUITY OF CARE PLEASE FAX: MOST RECENT OFFICE NOTE MOST RECENT LAB RESULTS. EKG PLEASE FAX TO [phone] ATTENTION: DANIKA FRASER RN THANK YOU documented in this encounter Plan of Treatment Not on filedocumented as of this encounter Procedures Comments Procedure Name Priority Date/Time Associated Diagnosis CBC Routine 05/13/2018 COMPREHENSIVE METABOLIC Routine 05/13/2018 PANEL documented in this encounter Results * COMPREHENSIVE METABOLIC PANEL (05/13/2018) Sodium 126 (L) OTHER OUTSIDE LAB Potassium 4.4 OTHER OUTSIDE LAB Chloride 90 (L) OTHER OUTSIDE LAB CO2 24 OTHER OUTSIDE LAB Blood Urea 13 OTHER OUTSIDE Nitrogen LAB Creatinine 0.81 OTHER OUTSIDE LAB Glucose 115 (H) OTHER OUTSIDE LAB Calcium 10.1 OTHER OUTSIDE LAB Total Protein 7.3 OTHER OUTSIDE LAB Total Bilirubin 0.5 OTHER OUTSIDE LAB Albumin 4.7 OTHER OUTSIDE LAB Alk Phosphatase 51 OTHER OUTSIDE LAB AST (SGOT) 17 OTHER OUTSIDE LAB ALT (SGPT) 12 OTHER OUTSIDE LAB eGFR Non >60 OTHER OUTSIDE LAB Syrian eGFR OTHER OUTSIDE Syrian LAB Anion Gap OTHER OUTSIDE LAB Specimen Blood - Blood Narrative Performed At OTHER OUTSIDE LAB Lab done with PCP.Sodium low. Pt does not believe lab re-checked. OV tomorrow. MarcelleRN Performing Organization Address City/State/Zipcode Phone Number OTHER OUTSIDE LAB * CBC (05/13/2018) White Blood 7.3 OTHER OUTSIDE Cells LAB RBC 4.59 OTHER OUTSIDE LAB Hemoglobin 14.7 OTHER OUTSIDE LAB Hematocrit 41.1 OTHER OUTSIDE LAB MCV 89.5 OTHER OUTSIDE LAB MCH 32.0 OTHER OUTSIDE LAB MCHC 35.8 (H) OTHER OUTSIDE LAB Platelet Count 427 (H) OTHER OUTSIDE LAB MPV 10.0 OTHER OUTSIDE LAB RDW 11.9 (L) OTHER OUTSIDE LAB Specimen Blood - Blood Narrative Performed At OTHER OUTSIDE LAB Lab completed/ordered by PCP. Entered for historical lab for OV tomorrow. MEREDITH Burton Performing Organization Address City/State/Zipcode Phone Number OTHER OUTSIDE LAB documented in this encounter Visit Diagnoses Not on filedocumented in this encounter
--- OUTSIDE RECORDS SUMMARY | 2018-08-19 09:48 | XMS REPORT | Encounter Summary ---
Author Author [facility] Organization [facility] Address Unknown Phone Unavailable Care Team Providers Care Environmental Compliance Manager Name Role Phone Yesenia Vazquez MD PCP Reason for Visit * Reason Comments Appointment Encounter Details Care Team Description Date Type Department Danika Fraser RN Appointment 05/18/2018 Telephone [facility] [address] [facility] [place] [address] Social History Date Tobacco Use Types Packs/Day Years Used Never Assessed Sex Assigned at Date Recorded Not on file Industry Job Start Date Occupation Not on file Not on file Not on file Travel End Travel History Travel Start No recent travel history available. documented as of this encounter Miscellaneous Notes * Telephone Encounter - Danika Fraser RN - 05/22/2018 5:[address] Weber has records. LN * Telephone Encounter - Danika Fraser RN - 05/22/2018 9:17 AM CDT Pt accepted an appt for 05/28/18 at at 2:00. LN * Telephone Encounter - Danika Fraser RN - 05/18/2018 10:04 AM CDT Patient is sister of Joellen Broussard in heart failure. Records from PCP received and asked Dr Weber to review/advise. 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
[2018-08-19] MEDS ORDERED: NS IV 500 ML 500 ML ONE (09:52)
[2018-08-19] MEDS ORDERED: NS IV 500 ML 500 ML IV PRN (09:53)
[2018-08-19] MEDS ORDERED: HURRICAINE EXT TUBE (BENZOCAINE) XX PRN (10:00)
[2018-08-19] MEDS ORDERED: fentaNYL INJECTION 100 MCG/2 ML AMP IVP ONE (10:00)
[2018-08-19] MEDS ORDERED: LIDOCAINE JELLY 2% 6 ML SYRINGE MM PRN (10:00)
[2018-08-19] MEDS ORDERED: MIDAZOLAM 2 MG/2 ML (VERSED) VIAL IVP ONE (10:00)
[2018-08-19 10:20] VITALS: BP 154/91
--- NOTE | 2018-08-19 10:32 | Conscious Sedation/ASA ---
Conscious Sedation Pre-Proced Time 10:00 ASA Score 2 For ASA 3 and 4: Consider anesthesia and medical clearance. Also, for patients with a history of failed moderate sedation consider anesthesia. Airway Lungs Heart ASA score ASA 1: a normal healthy patient ASA 2: a patient with a mild systemic disease (mid diabetes, controlled hypertension, obesity ASA 3: a patient with a severe systemic disease that limits activity (angina, COPD, prior Myocardial infarction) ASA 4: a patient with an incapacitating disease that is a constant threat to life (CHF, renal failure) ASA 5: a moribund patient not expected to survive 24 hrs. (ruptured aneurysm) ASA 6: a declared brain- patient whose organs are being harvested. For emergent operations, add the letter E after the classification Mallampati Classification Grade 2 Sedation Plan Analgesia, Amnesia, Plan communicated to team members, Discussed options with patient/fam, Discussed risks with patient/fam The patient is an appropriate candidate to undergo the planned procedure, sedation, and anesthesia. The patient immediately re-assessed prior to indication. DANIELA DURAN MD Aug 19, 2018 10:32
--- NOTE | 2018-08-19 10:33 | Progress Note-Pre Operative ---
Pre-Operative Progress Note H&P Reviewed The H&P was reviewed, patient examined and no changes noted. Date Seen by Provider: Aug 19, 2018 Time Seen by Provider: 10:00 Date H&P Reviewed: Aug 19, 2018 Time H&P Reviewed: 10:00 Pre-Operative Diagnosis: abdominal pain, GERD DANIELA DURAN MD Aug 19, 2018 10:33
--- NOTE | 2018-08-19 10:34 | Discharge Inst-Surgical ---
D/C Lap Instructions-RENEE Follow Up Activity as tolerated High Fiber Diet 25g or more per day Avoid Alcohol, Caffeine, Spicy [place] and Acid foods. Drink 64 fluid oz or more of fluids per day. Symptoms to Report: Fever over 101 degree F, Nausea/Vomiting If any problems/questions: Contact your physician or go to Emergency Room DANIELA DURAN MD Aug 19, 2018 10:34
[2018-08-19] MEDS ORDERED: HYDROcodone/APAP 5 MG/325 MG (LORTAB) TAB PO PRN (10:45)
[2018-08-19] MEDS ORDERED: ONDANSETRON 4 MG/2 ML (SDV) Z0FRAN IVP PRN (10:45)
[2018-08-19] MEDS ORDERED: morphine INJ 10 MG/ML 1ML (SYR OR VIAL) IVP PRN ×2 (10:45)
[2018-08-19] MEDS ORDERED: ACETAMINOPHEN 325 MG TABLET PO PRN (10:45)
[2018-08-19] MEDS ORDERED: LIDOCAINE JELLY 2% 6 ML SYRINGE ONE (11:33)
[2018-08-19] MEDS ORDERED: MIDAZOLAM 2 MG/2 ML (VERSED) VIAL ONE ×5 (11:34→12:07)
[2018-08-19] MEDS ORDERED: fentaNYL INJECTION 100 MCG/2 ML AMP ONE ×2 (11:34→12:13)
[2018-08-19] MEDS ORDERED: HURRICAINE EXT TUBE (BENZOCAINE) ONE (11:34)
--- NOTE | 2018-08-19 12:41 | Progress Note-Post Operative ---
Post-Operative Progess Note Surgeon (s)/Rail Maintenance Worker (s) Surgeon DANIELA DURAN MD Rail Maintenance Worker: none Pre-Operative Diagnosis abdominal pain, GERD Post-Operative Diagnosis reflux esophagitis(stage 2), small-mod HH(2cm), moderate gastirits. mild chronic stage 1 ext and hemorrhoids, mild-mod sigmoid and desc diverticulosis. Procedure & Operative Findings Date of Procedure 08/19/18 Procedure Performed/Findings EGD with bx. colonoscopy. Anesthesia Type cs Estimated Blood Loss Estimated blood loss (mL): minimal Specimens/Packing Specimens Removed ge, antrum. DANIELA DURAN MD Aug 19, 2018 12:41
[2018-08-19 13:00] VITALS: BP 115/58
[2018-08-19 13:30] VITALS: BP 140/75
[2018-08-19] MEDS ORDERED: SUCR1TAB36 PO (13:58)
[2018-08-19 14:15] VITALS: BP 140/75
--- NOTE | 2018-08-19 20:07 | OPERATIVE REPORT ---
DATE OF SERVICE: 08/19/2018 ATTENDING PRIMARY PHYSICIAN: Dr. Vazquez. PREOPERATIVE DIAGNOSES: Epigastric pain and lower abdominal pain. POSTOPERATIVE DIAGNOSES: Reflux esophagitis stage II, small to moderate size hiatal hernia approximately 2 cm in size. Moderate severity gastritis. Mild chronic stage I external and internal hemorrhoids, mild to moderate sigmoid diverticulosis. PROCEDURE: EGD with biopsy, colonoscopy. SURGEON: Daniela Duran MD ANESTHESIA: Conscious sedation. ESTIMATED BLOOD LOSS: Minimal. FINDINGS: Same as postop. DISPOSITION: The patient tolerated the procedure well. INDICATIONS: The patient is a 57-year-old female referred over to us for crampy abdominal pain including the epigastric region as well as the lower abdominal quadrants. She also reports associated nausea, diarrhea and constipation for the past 3 months. Initially, this was thought to be cardiac in nature and underwent a cardiac workup, which was normal. She was started on Protonix and reports that this did initially helped; however, she has had some level of recurrence of her symptoms. She also does report episodes of nausea, diarrhea and constipation. She does drink social alcohol and states that alcoholic beverages do cause a significant amount of worsening discomfort especially in the epigastric region. DESCRIPTION OF PROCEDURE: The patient was brought to the endoscopy suite, laid in the left lateral decubitus position. After adequate IV pain and sedating medications and conscious sedation anesthesia, the mouthpiece was applied. Endoscope was placed in the mouth, visualizing the pharynx and hypopharyngeal region. Vocal cords, epiglottis and vallecula identified and appeared to be normal. The endoscope was then gently intubated. Esophageal opening and esophagus insufflated. The endoscope was then advanced through the first, second and third portion of the esophagus at the level of the GE junction, there were no ulcers or strictures identified in this region. A biopsy was taken with forceps with visualization of good hemostasis. The endoscope was then advanced in the stomach and endoscope retroflexed, visualizing a small to moderate size hiatal hernia approximately 2 cm in size. There was a moderate severity gastritis more focused towards the antrum with several streak antral erosions; however, no formal ulcerations. A biopsy was taken of the antrum to rule out H. pylori with visualization of good hemostasis. Endoscope was then advanced to the pylorus and the first and second portions of the duodenum, which appeared normal with no distal obstructions. The endoscope was then slowly withdrawn while taking a second look and suctioning of residual air with no additional findings. The patient tolerated the procedure well. We will recommend the necessary lifestyle and diet accommodation including small and more frequent meals, avoidance of eating at night as well as head elevation while lying supine. Unfortunately, we will recommend cessation of alcoholic beverages as well as caffeinated beverages and spicy, greasy and acidic foods. We will also have her continue with Protonix as well as start Carafate 1 gram q.i.d. for the next 2 weeks, then on a p.r.n. basis. If she has recurrent symptoms of reflux despite maximal medical therapy over time, she may be a candidate for hiatal hernia repair as well as an antireflux procedure; however, before proceeding with this we will get esophageal manometric studies to rule out any esophageal dysmotility disorder first hand. Under the same conscious sedation anesthesia, we then proceeded with the colonoscopy portion of the procedure. A digital rectal examination was performed, which revealed mild chronic stage I external and internal hemorrhoids. Normal sphincter tone was felt and there were no palpable masses. The endoscope was then intubated to the anus, rectum and gently insufflated. The endoscope was then advanced through the valves of Remy of the rectum with no polyps or neoplasms identified. The endoscope was then advanced through the sigmoid and descending colon where a mild to moderate diverticulosis identified. There were no mucosal inflammatory changes to indicate any active diverticulitis. The endoscope was then advanced to the remainder of the transverse, ascending colon to the cecum. These segments were normal. There were no polyps or any neoplasms identified throughout the colon or rectum. The endoscope was then slowly withdrawn while taking a second look and suctioning of residual air with no additional findings. The patient tolerated the procedure well. We will recommend medical management with a high fiber diet with at least 25 grams of fiber daily as well as significant amounts of water to promote soft stools on a daily basis. There were no polyps identified and she does not have any family history of colon cancer; however, we feel that with high fiber this should help with her symptomatology of the crampy lower abdominal pain. She does not need another colonoscopy for another 10 years; however, sooner if she becomes symptomatic. Job ID: [id number] DocumentID: [id number] Dictated Date: 08/19/2018 12:41:40 Insurance Claims Clerk Date: 08/19/2018 20:07:43 Dictated By: DANIELA DURAN MD
== END 2018-08-19 14:15 | disposition home or self-care (01) ==
LOC: ENDO 09:36
PROVIDERS: ATTEND Surgery
DX: K21.0 Gastro-esophageal reflux disease with esophagitis (principal); K44.9 Diaphragmatic hernia without obstruction or gangrene; K29.70 Gastritis, unspecified, without bleeding; K57.30 Diverticulosis of large intestine without perforation or abscess without bleeding; K64.0 First degree hemorrhoids; E03.9 Hypothyroidism, unspecified; I10 Essential (primary) hypertension; Z79.899 Other long term (current) drug therapy
CPT/HCPCS: 88305

== ENCOUNTER → 2021-03-07 | Outpatient (CLI) | payer BC ==
[~2021-03-07] MED LIST changes: -METO-370 PO; +METO50TA7 PO; -PANT40TA3 PO; +PANT40TA52 PO; +SUCR1TAB36 PO
== END ==
LOC: LABNPT 07:18
PROVIDERS: ATTEND Family Medicine
DX: R53.83 Other fatigue (principal); R52 Pain, unspecified; Z20.822 Contact with and (suspected) exposure to COVID-19; Z53.9 Procedure and treatment not carried out, unspecified reason

== ENCOUNTER → 2021-03-08 | Outpatient (CLI) | payer BC | LOC: LABNPT 08:00 | PROVIDERS: ATTEND Family Medicine | DX: U07.1 COVID-19 (principal) | CPT/HCPCS: 87635 ==